=== PATIENT | female | born 1985 | race African-American/Black ===

== ENCOUNTER 2019-01-15 03:20 | Emergency (ER) | payer BC ==
[~2019-01-15] VITALS: Ht 160 cm; Wt 63.0 kg
[2019-01-15] MEDS ORDERED: KETOROLAC 30MG/ML VIAL IM ONE (04:15)
[2019-01-15 05:00] VITALS: BP 145/99
== END 2019-01-15 05:02 | disposition home or self-care (01) ==
LOC: ER 03:20
DX: K08.89 Other specified disorders of teeth and supporting structures (principal); I10 Essential (primary) hypertension; Z88.0 Allergy status to penicillin
CPT/HCPCS: 96372; 99283; J1885; Z7610